=== PATIENT | female | born 1965 | race Caucasian/White ===

== ENCOUNTER 2023-01-13 23:06 | Inpatient (IN) | payer BC ==
[~2023-01-13] VITALS: Ht 165.1 cm; Wt 85.0 kg
[~2023-01-13 23:06] MED LIST: ASPI-611 PO; CLON-529 PO; FENO200C22 PO; FERR325T39 PO; LEVO50TA66 PO; MULT-620 PO; NITR0.4T SL; SPIR100T5 PO
[2023-01-13 23:28] LABS: BASOPHILS # (AUTO) 0.1 X10'3 (0-0.2); BASOPHILS % (AUTO) 0.7 % (0-1); EOSINOPHILS # (AUTO) 0.2 X10'3 (0-0.9); EOSINOPHILS % (AUTO) 2.3 % (0-6); HEMATOCRIT 43.1 % (35.0-45.0); HEMOGLOBIN 14.6 g/dl (12.0-16.0); LYMPHOCYTES # (AUTO) 3.6 X10'3 (1.1-4.8); LYMPHOCYTES % (AUTO) 35.6 % (21-51); MEAN CORPUSCULAR HEMOGLOBIN 31.3 PG (27.0-31.0); MEAN CORPUSCULAR HGB CONC 33.8 g/dL (33.0-36.5); MEAN CORPUSCULAR VOLUME 92.6 FL (78-98); MEAN PLATELET VOLUME 9.4 FL (7.4-10.4); MONOCYTES # (AUTO) 0.7 X10'3 (0-0.9); MONOCYTES % (AUTO) 6.7 % (2-12); NEUTROPHILS # (AUTO) 5.5 X10'3 (1.8-7.7); NEUTROPHILS % (AUTO) 54.7 % (42-75); PLATELET COUNT 293 X10'3 (140-440); RED BLOOD COUNT 4.66 X10'6 (4.20-5.60); RED CELL DISTRIBUTION WIDTH 12.5 % (11.5-14.5)
[2023-01-13 23:44] LABS: ALANINE AMINOTRANSFERASE 26 U/L (12-78); ALBUMIN 3.8 G/DL (3.4-5.0); ALBUMIN/GLOBULIN RATIO 1.3 (1.1-1.5); ALKALINE PHOSPHATASE 58 IU/L (46-116); ANION GAP 11 (8-16); ASPARTATE AMINO TRANSFERASE 12 U/L (10-37); BILIRUBIN,TOTAL 0.2 MG/DL (0.1-1.0); BLOOD UREA NITROGEN 36 MG/DL (7-18); BUN/CREATININE RATIO 26.9 (10.0-20.0); CALCIUM 9.6 MG/DL (8.5-10.1); CHLORIDE 98 MMOL/L (99-107); CREATININE 1.34 MG/DL (0.40-0.90); GLUCOSE 264 MG/DL (70-104); POTASSIUM 3.7 MMOL/L (3.5-5.1); SODIUM 137 MMOL/L (135-145); TOTAL PROTEIN 6.8 G/DL (6.4-8.2); eGFR 41 ML/MIN
[2023-01-13] MEDS ORDERED: aspirin 325mg tablet PO ONE (23:50)
[2023-01-13] MEDS ORDERED: normal saline 1000ml 1,000 ML IV ONE (23:50)
[2023-01-13 23:52] LABS: MAGNESIUM 1.9 MG/DL (1.5-2.4)
[2023-01-14] VITALS (9 sets, daily range): BP systolic 96–176; BP diastolic 52–107
[2023-01-14] MEDS ORDERED: bisacodyl 10mg suppository rectal RC PRN (01:00)
[2023-01-14] MEDS ORDERED: mag hydrox/Alum hydrox/simeth 30ml oral suspension PO PRN (01:00)
[2023-01-14] MEDS ORDERED: diphenhydrAMINE 50 mg/ml inj IV PRN (01:00)
[2023-01-14] MEDS ORDERED: HYDROcodone/acetaminophen 5mg/325mg tablet PO PRN ×2 (01:00→19:20)
[2023-01-14] MEDS ORDERED: magnesium hydroxide 30ml (MOM) UD suspension PO PRN (01:00)
[2023-01-14] MEDS ORDERED: ondansetron 4mg rapidly disintigrating tab PO PRN (01:00)
[2023-01-14] MEDS ORDERED: acetaminophen 325mg tablet PO PRN ×2 (01:00)
[2023-01-14] MEDS ORDERED: acetaminophen 650mg rectal suppository RC PRN (01:00)
[2023-01-14] MEDS ORDERED: diphenhydrAMINE 25mg capsule PO PRN (01:00)
[2023-01-14] MEDS ORDERED: dextrose 50%-water 50ml dispensing syringe IV PRN ×2 (01:05)
[2023-01-14] MEDS ORDERED: DEXTROSE 15 GM of carb/4 tabs (each vial/BOTTLE has 4 tablets) PO PRN ×2 (01:05)
[2023-01-14] MEDS ORDERED: aminophylline 250mg/10ml inj. IV PRN (01:05)
[2023-01-14] MEDS ORDERED: regadenoson 0.4mg/5ml syringe IV PRN (01:05)
[2023-01-14] MEDS ORDERED: metoprolol tartrate 1mg/ml inj IV PRN (01:05)
[2023-01-14] MEDS ORDERED: MESSAGE TO PHARMACY PO ONE (01:05)
[2023-01-14] MEDS ORDERED: glucagon, human recombinant 1mg kit SUBCUT PRN (01:05)
[2023-01-14 01:15] LABS: APTT 26 SECONDS (22-32)
[2023-01-14 01:17] LABS: PHOSPHORUS 4.9 MG/DL (2.3-4.5)
[2023-01-14 01:21] LABS: HEMOGLOBIN A1C 7.3 % (4.5-6.2)
[2023-01-14 01:28] LABS: D-DIMER 0.38 MG/L FEU (0-0.50)
[2023-01-14] MEDS: normal saline 1000ml 1,000 ML IV SCH ×2 (01:33→11:00)
[2023-01-14] MEDS ORDERED: LEVO75TA7 PO (04:11)
[2023-01-14] MEDS ORDERED: GLIP2.5T3 PO (04:21)
[2023-01-14] MEDS ORDERED: EZET10TA48 PO (04:21)
[2023-01-14] MEDS ORDERED: CALC3.8S NAS (04:21)
[2023-01-14] MEDS ORDERED: LIOT5TAB10 PO (04:21)
[2023-01-14] MEDS ORDERED: METF-438 PO (04:21)
[2023-01-14] MEDS ORDERED: DAPA10TA PO (04:21)
[2023-01-14] MEDS ORDERED: LOSA1TAB39 PO (04:21)
--- NOTE | 2023-01-14 06:01 | NUR ---
patient came to floor from ED. she is self. was able to do admission documentation. skin is dry and intact,. has stretch jaime and folds in abdomen from losing weight
--- NOTE | 2023-01-14 07:01 | NUR ---
Patient in room PCU 3016. I have received report from Marah HAMPTON and had the opportunity to ask questions and assume patient care. Patient HR dropped 38 per tele box, c/o chest sanjana Addendum: 01/14/23 at 702 by Mi Smalls LVN Pain, pain to L arm and nausea. VS obtained and stable. 12 lead EKG obtained, called to review. BERTA Crystal received new orders and carried out. Addendum: 01/14/23 at 702 by Mi Smalls LVN Will continue to monitor per order
--- NOTE | 2023-01-14 07:03 | NUR ---
patient complained of chest pain. pain radiating down left arm. feeling nausea. obtained ekg. dr wiggins came and read ekg. per md give norco 5mg for the pain not nitro because her heart rate is 55 nor morphine because heart rate is low. obtain vitals. patient has fluids nss 100.
--- NOTE | 2023-01-14 07:15 | NUR ---
PAGER ID: [phone] MESSAGE: [id number]- Pt c/o chest pain, radiating to L arm, symptomatic. EKG obtained. Please call HILLARY Stark [phone] Addendum: 01/14/23 at [address] Mi Sm[address] LVN Dr. Guthrie called, notified of c/o chest pain radiating to L arm, diaphresis, and nausea. Notified of order from Dr. Aponte for norco 325 that was carried out. Notified of elevated troponin level 68- no new orders at this time for troponin. Received telephone order to admin PRN nitro and zofran, if nitro is not effective then ordered to administer morphine. Charge nurse Lori to carry out. ordered to hold beta blockers for stress test, ok to admin other scheduled medication. Will cont to assess for any changes. Addendum: 01/14/23 at 0736 by Mi Smalls LVN PAGER ID: [phone] MESSAGE: [id number]- Corinna Velez: Pt still c/o chest pain, 2nd nitro give. Stress test corky Barry states cannot see patient due to chest pain, recommends another troponin and laborer shipyard. Pt sees Dr. Baugh regularly. Giorgio Stark [id number]
[2023-01-14] MEDS: ondansetron/PF 4mg/2ml inj IV PRN ×4 (07:17→23:36)
[2023-01-14] MEDS: nitroGLYCERIN 0.4mg SUBLingual tab SL PRN ×3 (07:18→13:34)
[2023-01-14] MEDS: pantoprazole 40mg Tablet.DR PO SCH (07:37)
--- NOTE | 2023-01-14 07:38 | NUR ---
PATIENT C/O 03/16 CP . dR JEAN NOTIFIED. PATIENT GIVEN NITRO X2 WITH SLIGHT IMPROVEMENT. PAIN RADIATES DOWN LEFT ARM AND WAS ALSO RADIATING TO JAW. SHE GOT A LITTLE RELIEF WITH NITRO. PAIN NOT RADIATING TO JAW ANYMORE. STILL C/O NAUSEA. GIVEN PROTONIX IN CASE OF GERD. PATIENT STATES SHE IS BURPING. PAIN STILL RADIATES DOWN LEFT ARM.
[2023-01-14] MEDS: aspirin 81mg, enteric-coated 1 TAB TABLET.DR PO SCH (07:51)
[2023-01-14] MEDS: docusate sod 100mg capsule PO SCH ×2 (07:51→20:00)
[2023-01-14] MEDS: morphine 2 MG/ML inj. syringe IV PRN ×2 (07:52→13:20)
[2023-01-14] MEDS ORDERED: heparin, porcine 5000 units/ml vial SQ SCH (08:00)
--- NOTE | 2023-01-14 08:00 | NUR ---
Problems reprioritized. Patient report given per charge nurse to RN, questions answered & plan of care reviewed with Kaylee HAMPTON. Kaylee to give IV morphine per MD order. VS obtained will enter into chart.
--- NOTE | 2023-01-14 09:00 | NUR ---
Patient in room PCU 3016. I have received report from Mahesh BENAVIDEZ and had the opportunity to ask questions and assume patient care. Pt is having symptomatic chest pain, nausea, diaphoretic with pressure and tightness. I assumed care due to pt needing a higher acuity nurse.
[2023-01-14 09:12] LABS: ALBUMIN 3.7 G/DL (3.4-5.0); ANION GAP 16 (8-16); BLOOD UREA NITROGEN 30 MG/DL (7-18); BUN/CREATININE RATIO 31.6 (10.0-20.0); CALCIUM 9.3 MG/DL (8.5-10.1); CHLORIDE 99 MMOL/L (99-107); CHOL/HDL RATIO 4.2 (0.00-4.99); CHOLESTEROL 175 MG/DL (0-200); CREATININE 0.95 MG/DL (0.40-0.90); GLUCOSE 193 MG/DL (70-104); HDL CHOLESTEROL 42 MG/DL (35-60); LDL CHOLESTEROL 100 MG/DL (50-100); POTASSIUM 3.6 MMOL/L (3.5-5.1); SODIUM 137 MMOL/L (135-145); TOTAL CARBON DIOXIDE 22.3 MMOL/L (24-32); TRIGLYCERIDES 175 MG/DL (20-135); eGFR 60 ML/MIN
[2023-01-14] MEDS ORDERED: heparin 25,000 UNIT/250ml bag 250 ML IV PRN (09:25)
[2023-01-14] MEDS ORDERED: heparin 10,000 units/1 ML INJ IV ONE (09:25)
[2023-01-14] MEDS ORDERED: heparin 10,000 units/1 ML INJ IV PRN (09:25)
[2023-01-14] MEDS ORDERED: nitroGLYCERIN-Tridil 50MG/D5W 250 ML IV SCH (13:45)
--- NOTE | 2023-01-14 14:22 | NUR ---
Per EMR pt with T2DM, well controlled with A1c 7.3%. Written DM education with RD contact information placed in patient's chart. Will remain available. Addendum: 01/14/23 at [address] Amended: Links added.
[2023-01-14] MEDS ORDERED: verapamil 2.5 mg/ml inj IV ONE (16:03)
[2023-01-14] MEDS ORDERED: nitroGLYCERIN-Tridil 50MG/D5W 250 ML IV ONE (16:03)
[2023-01-14] MEDS ORDERED: fentaNYL/PF 50MCG/1 ML 2ML syringe ONE (16:03)
[2023-01-14] MEDS ORDERED: iohexol 350MG/ML 100ml bottle IV ONE ×3 (16:03→17:46)
[2023-01-14] MEDS ORDERED: heparin 1,000unit/ml 10ml vial 10 ML ONE (16:03)
[2023-01-14] MEDS ORDERED: midazolam 1 mg/ML 2ml injection ONE ×2 (16:03→18:02)
[2023-01-14] MEDS ORDERED: LIDOcaine 1% (10mg/ml) 2ml vial ONE (16:04)
[2023-01-14] MEDS ORDERED: ticagrelor 90mg tablet ONE (17:17)
[2023-01-14] MEDS ORDERED: tirofiban 12.5mg in NS 250mL 250 ML IV ONE (17:35)
[2023-01-14] MEDS ORDERED: heparin 1,000 UNITS/NS 500ml 500 ML ONE (18:04)
--- NOTE | 2023-01-14 18:45 | NUR ---
Problems reprioritized. Patient report given, questions answered & plan of care reviewed with Marah HAMPTON, patient stable at transfer of care.
[2023-01-14] MEDS ORDERED: OXAZEpam 15mg capsule PO PRN (19:20)
[2023-01-14] MEDS ORDERED: normal saline 1000ml 1,000 ML IV SCH (19:20)
[2023-01-14] MEDS ORDERED: HYDROcodone/acetaminophen 10/325mg tab PO PRN (19:20)
[2023-01-14] MEDS ORDERED: temazepam 15mg capsule PO PRN (21:00)
[2023-01-14] MEDS: insulin glargine (Lantus) pen - multi-dose SQ SCH (21:00)
[2023-01-14] MEDS: ticagrelor 90mg tablet PO SCH (23:02)
[2023-01-14] MEDS ORDERED: ondansetron/PF 4mg/2ml inj IV PRN (23:25)
[2023-01-14] MEDS ORDERED: HYDROchlorothiazide 25mg tablet PO ONE (23:35)
[2023-01-14] MEDS ORDERED: aspirin 81mg, enteric-coated 1 TAB TABLET.DR PO ONE (23:35)
[2023-01-14] MEDS ORDERED: losartan 50mg tablet PO ONE (23:35)
[2023-01-14] MEDS ORDERED: cloNIDine 0.1 mg tablet PO ONE (23:35)
[2023-01-14 23:53] LABS: BASOPHILS % (AUTO) 0.1 % (0-1); EOSINOPHILS % (AUTO) 0 % (0-6); HEMATOCRIT 43.9 % (35.0-45.0); HEMOGLOBIN 14.8 g/dl (12.0-16.0); LYMPHOCYTES # (AUTO) 1.3 X10'3 (1.1-4.8); LYMPHOCYTES % (AUTO) 8.1 % (21-51); MEAN CORPUSCULAR HEMOGLOBIN 31.7 PG (27.0-31.0); MEAN CORPUSCULAR HGB CONC 33.8 g/dL (33.0-36.5); MEAN CORPUSCULAR VOLUME 93.9 FL (78-98); MEAN PLATELET VOLUME 9.5 FL (7.4-10.4); MONOCYTES # (AUTO) 0.9 X10'3 (0-0.9); MONOCYTES % (AUTO) 5.8 % (2-12); NEUTROPHILS # (AUTO) 13.4 X10'3 (1.8-7.7); PLATELET COUNT 287 X10'3 (140-440); RED BLOOD COUNT 4.67 X10'6 (4.20-5.60); RED CELL DISTRIBUTION WIDTH 12.8 % (11.5-14.5); WHITE BLOOD COUNT 15.6 X10'3 (4.5-11.0)
[2023-01-15] VITALS (17 sets, daily range): BP systolic 82–162; BP diastolic 49–91
[2023-01-15] MEDS ORDERED: hydrALAZINE 20mg/ml inj. IV PRN (00:20)
[2023-01-15] MEDS ORDERED: methylPREDNISolone sod succ 125mg/2ml vial IV ONE ×2 (01:00→08:25)
[2023-01-15] MEDS: diazepam inj 5 MG/ML inj. IV PRN ×3 (01:05→04:18)
[2023-01-15] MEDS ORDERED: niCARDipine-NS 40mg/200ml IVPB 200 ML IV SCH (01:10)
[2023-01-15] MEDS: normal saline 1000ml 1,000 ML IV SCH ×2 (01:20→07:00)
[2023-01-15 03:19] LABS: BASOPHILS % (AUTO) 0.1 % (0-1); EOSINOPHILS % (AUTO) 0 % (0-6); HEMOGLOBIN 14.9 g/dl (12.0-16.0); LYMPHOCYTES # (AUTO) 0.7 X10'3 (1.1-4.8); LYMPHOCYTES % (AUTO) 4.6 % (21-51); MEAN CORPUSCULAR HEMOGLOBIN 31.1 PG (27.0-31.0); MEAN CORPUSCULAR HGB CONC 33.1 g/dL (33.0-36.5); MEAN CORPUSCULAR VOLUME 94.2 FL (78-98); MEAN PLATELET VOLUME 9.8 FL (7.4-10.4); MONOCYTES # (AUTO) 0.5 X10'3 (0-0.9); MONOCYTES % (AUTO) 3.2 % (2-12); NEUTROPHILS # (AUTO) 14.7 X10'3 (1.8-7.7); NEUTROPHILS % (AUTO) 92.1 % (42-75); PLATELET COUNT 335 X10'3 (140-440); RED BLOOD COUNT 4.78 X10'6 (4.20-5.60); RED CELL DISTRIBUTION WIDTH 12.6 % (11.5-14.5)
[2023-01-15] MEDS: nitroGLYCERIN 0.4mg SUBLingual tab SL PRN ×2 (03:39→03:44)
[2023-01-15] MEDS ORDERED: potassium Cl 40MEQ/1/2NS 520ml 520 ML IV PRN (03:55)
[2023-01-15] MEDS ORDERED: magnesium 4gm in 100ml NS 100 ML IV PRN (03:55)
[2023-01-15] MEDS ORDERED: magnesium 2GM in 50ml NS 50 ML IV PRN (03:55)
[2023-01-15] MEDS ORDERED: potassium Cl 40MEQ/270ML bag 270 ML IV PRN (03:55)
[2023-01-15] MEDS ORDERED: potassium Cl 20 mEq SR tablet PO PRN ×2 (03:55)
[2023-01-15] MEDS ORDERED: magnesium Cl slow-release 64mg tablet PO PRN (03:55)
[2023-01-15] MEDS: tirofiban 12.5mg in NS 250mL IV SCH ×2 (03:59→12:51)
[2023-01-15] MEDS: potassium Cl 40MEQ/1/2NS 520ml 520 ML IV SCH ×2 (04:37→08:00)
--- NOTE | 2023-01-15 05:34 | NUR ---
patient came back from cathodic protection technician around 1800. got bedside report from cath nurse. faxed orders to pharm. patient stated she was feeling alot better then from this am.. patient was started on aggrastat to run for 18 hours. started drip at 1800. did a cbc per protcol at 2355 to check platetes. patient came up with TR band. per cath nurse I can start letting the air out at 1930pm.. I took 2 cc of air, then 2 cc. when I got up to six cc she started bleeding. put all the air back in. waited for 1 hour tried the same process again. patient started bleeding. around 1900 patient started feeling nausea, blood pressure where elevated. gave 4mg zofran no help, advised md patient has home medication blood pressure meds he ordered them. patient started throwing up. per md gave 8mg iv zofran. no help. bp still elevated. patient was diaphropheic shaking. obtained ekg. talked to joellen in ICU asked her to come up for 2nd opinion. md ordered nicardipine drip. patient is still on aggrastat. I inquired with pharm if drip could be making patient nausea. patient denied any sob, chest pain.. around 2 am patient stated she is having chest pain. we did labs. trop. gave three doses of nitro patient stated after third nitro her chest pain is 0. labs came back. k 2.2, calcium 6.1 corrected 7.06. trop 5,652. mag 1.0.
--- NOTE | 2023-01-15 05:44 | NUR ---
started k pedrito and mg pedrito. after being on nicardipine drip blood pressure was coming down. per md still give patient blood pressure po meds. patient is voiding well. had ED nurse come up and put another IV in since patient has alot of medications going in. md also ordered valium q 2 hours as needed. finally was able to take off the tr band around 215am. site is dry and intact.
--- NOTE | 2023-01-15 05:54 | NUR ---
checked patients blood sugar as well.
--- NOTE | 2023-01-15 06:54 | NUR ---
Patient in room PCU 3016. I have received report from Marah HAMPTON, and had the opportunity to ask questions and assume patient care.
[2023-01-15] MEDS ORDERED: diphenhydrAMINE 25mg capsule PO ONE (07:40)
[2023-01-15] MEDS ORDERED: diphenhydrAMINE 50 mg/ml inj IV ONE (07:45)
[2023-01-15] MEDS: K and/or MAG REPLACEMENT MC SCH (08:00)
[2023-01-15] MEDS: ezetimibe 10mg tablet PO SCH (08:05)
[2023-01-15] MEDS: ticagrelor 90mg tablet PO SCH ×2 (08:06→20:22)
[2023-01-15] MEDS: levoTHYROXINE 75mcg tablet PO SCH (08:06)
[2023-01-15] MEDS: aspirin 81mg, enteric-coated 1 TAB TABLET.DR PO SCH (08:06)
[2023-01-15] MEDS: losartan 50mg tablet PO SCH (08:06)
[2023-01-15] MEDS: HYDROchlorothiazide 25mg tablet PO SCH (08:06)
[2023-01-15] MEDS: pantoprazole 40mg Tablet.DR PO SCH (08:06)
[2023-01-15] MEDS: docusate sod 100mg capsule PO SCH ×2 (08:06→20:22)
[2023-01-15] MEDS: cloNIDine 0.1 mg tablet PO SCH ×3 (08:07→20:23)
[2023-01-15] MEDS: liothyronine sod 5mcg tablet PO SCH ×2 (08:13→20:22)
[2023-01-15] MEDS: fenofibrate 145mg tablet PO SCH (08:13)
[2023-01-15 09:11] LABS: ALANINE AMINOTRANSFERASE 27 U/L (12-78); ALBUMIN/GLOBULIN RATIO 1.1 (1.1-1.5); ALKALINE PHOSPHATASE 61 IU/L (46-116); ANION GAP 21 (8-16); ASPARTATE AMINO TRANSFERASE 49 U/L (10-37); BILIRUBIN,TOTAL 0.5 MG/DL (0.1-1.0); BLOOD UREA NITROGEN 24 MG/DL (7-18); CALCIUM 9.1 MG/DL (8.5-10.1); CHLORIDE 100 MMOL/L (99-107); CREATININE 1.33 MG/DL (0.40-0.90); GLUCOSE 298 MG/DL (70-104); MAGNESIUM 2.1 MG/DL (1.5-2.4); SODIUM 138 MMOL/L (135-145); TOTAL CARBON DIOXIDE 16.7 MMOL/L (24-32); TOTAL PROTEIN 7.6 G/DL (6.4-8.2); eGFR 41 ML/MIN
[2023-01-15 09:13] LABS: POTASSIUM 3.9 MMOL/L (3.5-5.1)
[2023-01-15] MEDS: insulin Lispro (HumaLOG) vial - multi-dose SQ SCH ×2 (15:37→19:45)
--- NOTE | 2023-01-15 18:40 | NUR ---
Problems reprioritized. Patient report given, questions answered & plan of care reviewed with Suni RN, patient stable at transfer of care.
--- NOTE | 2023-01-15 18:45 | NUR ---
Patient in room PCU 3016. I have received report from ANA HAMPTON and had the opportunity to ask questions and assume patient care.
[2023-01-15] MEDS: insulin glargine (Lantus) pen - multi-dose SQ SCH (22:04)
[2023-01-16 02:00] VITALS: BP 110/62
[2023-01-16] MEDS: tirofiban 12.5mg in NS 250mL IV SCH (05:12)
--- NOTE | 2023-01-16 06:19 | NUR ---
Problems reprioritized. Patient report given, questions answered & plan of care reviewed with ANDREW HAMPTON.
[2023-01-16 06:30] VITALS: BP 168/92
--- NOTE | 2023-01-16 06:38 | NUR ---
Patient in room PCU 3016. I have received report from Maggie Serrano RN and had the opportunity to ask questions and assume patient care.
[2023-01-16 07:21] LABS: BASOPHILS % (AUTO) 0.3 % (0-1); EOSINOPHILS % (AUTO) 0.3 % (0-6); HEMATOCRIT 43.1 % (35.0-45.0); HEMOGLOBIN 14.6 g/dl (12.0-16.0); LYMPHOCYTES # (AUTO) 2.2 X10'3 (1.1-4.8); LYMPHOCYTES % (AUTO) 15.4 % (21-51); MEAN CORPUSCULAR HEMOGLOBIN 31.5 PG (27.0-31.0); MEAN CORPUSCULAR VOLUME 92.9 FL (78-98); MEAN PLATELET VOLUME 9.4 FL (7.4-10.4); MONOCYTES % (AUTO) 7.2 % (2-12); NEUTROPHILS # (AUTO) 11.1 X10'3 (1.8-7.7); NEUTROPHILS % (AUTO) 76.8 % (42-75); PLATELET COUNT 277 X10'3 (140-440); RED BLOOD COUNT 4.64 X10'6 (4.20-5.60); RED CELL DISTRIBUTION WIDTH 12.7 % (11.5-14.5); WHITE BLOOD COUNT 14.5 X10'3 (4.5-11.0)
[2023-01-16] MEDS: docusate sod 100mg capsule PO SCH (07:21)
[2023-01-16] MEDS: ezetimibe 10mg tablet PO SCH (07:22)
[2023-01-16] MEDS: losartan 50mg tablet PO SCH (07:22)
[2023-01-16] MEDS: liothyronine sod 5mcg tablet PO SCH (07:22)
[2023-01-16] MEDS: levoTHYROXINE 75mcg tablet PO SCH (07:22)
[2023-01-16] MEDS: aspirin 81mg, enteric-coated 1 TAB TABLET.DR PO SCH (07:22)
[2023-01-16] MEDS: HYDROchlorothiazide 25mg tablet PO SCH (07:23)
[2023-01-16] MEDS: pantoprazole 40mg Tablet.DR PO SCH (07:23)
[2023-01-16] MEDS: cloNIDine 0.1 mg tablet PO SCH (07:23)
[2023-01-16] MEDS: ticagrelor 90mg tablet PO SCH (07:23)
[2023-01-16 07:26] LABS: ALANINE AMINOTRANSFERASE 25 U/L (12-78); ALBUMIN 3.9 G/DL (3.4-5.0); ALBUMIN/GLOBULIN RATIO 1.2 (1.1-1.5); ALKALINE PHOSPHATASE 56 IU/L (46-116); ANION GAP 7 (8-16); ASPARTATE AMINO TRANSFERASE 33 U/L (10-37); BILIRUBIN,TOTAL 0.5 MG/DL (0.1-1.0); BLOOD UREA NITROGEN 31 MG/DL (7-18); BUN/CREATININE RATIO 27.9 (10.0-20.0); CALCIUM 9.9 MG/DL (8.5-10.1); CHLORIDE 101 MMOL/L (99-107); CREATININE 1.11 MG/DL (0.40-0.90); GLUCOSE 148 MG/DL (70-104); MAGNESIUM 2.1 MG/DL (1.5-2.4); POTASSIUM 3.3 MMOL/L (3.5-5.1); SODIUM 139 MMOL/L (135-145); TOTAL CARBON DIOXIDE 31.1 MMOL/L (24-32); TOTAL PROTEIN 7.2 G/DL (6.4-8.2); eGFR 50 ML/MIN
[2023-01-16] MEDS: K and/or MAG REPLACEMENT MC SCH (08:00)
[2023-01-16] MEDS: fenofibrate 145mg tablet PO SCH (08:00)
[2023-01-16] MEDS: insulin Lispro (HumaLOG) vial - multi-dose SQ SCH (08:58)
[2023-01-16] MEDS ORDERED: TICA90TA PO (09:32)
[2023-01-16] MEDS ORDERED: ASPI-1071 PO (09:32)
[2023-01-16] MEDS ORDERED: LOP25T PO (09:32)
[2023-01-16] MEDS ORDERED: NITR0.4T51 SL (09:36)
[2023-01-16 10:30] VITALS: BP 106/64
[2023-01-16] MEDS ORDERED: potassium Cl 20 mEq SR tablet PO STA (11:40)
--- NOTE | 2023-01-16 12:08 | NUR ---
Pt stable for D/C per MD orders. PIV's x 3 removed, pt tolerated well. Tele removed and returned to telecommunication equipment repairer. All d/c ppwk was rev'd with patient and patient verbalized understanding. Jhonny showed by the prescription of Brilinta. All questions, comments, and concerns were answered at this time. All personal belongings were sent with patient. New RX electronically sent to [facility].
--- NOTE | 2023-01-16 12:11 | NUR ---
Pt refused 1200 accucheck as she is getting d/c'd.
--- NOTE | 2023-01-16 12:30 | NUR ---
Pt was wheeled out in w/c by nursing staff to private vehicle, driving.
[2023-01-17] MEDS ORDERED: SULF1TAB49 PO (20:52)
[2023-01-17] MEDS ORDERED: AMOX-117 PO (20:53)
== END 2023-01-16 12:16 | disposition home or self-care (01) | DRG 246 ==
LOC: ER 23:07 → ED HOLD 01-14 01:02 → PCU 3S 01-14 05:00
PROVIDERS: ADMIT Family Medicine; ATTEND Family Medicine
PROC: 4A023N7 Measurement of Cardiac Sampling and Pressure, Left Heart, Percutaneous Approach (ICD-10-PCS; principal; 2023-01-14)
PROC: 027034Z Dilation of Coronary Artery, One Artery with Drug-eluting Intraluminal Device, Percutaneous Approach (ICD-10-PCS; 2023-01-14)
PROC: B2111ZZ Fluoroscopy of Multiple Coronary Arteries using Low Osmolar Contrast (ICD-10-PCS; 2023-01-14)
DX: I25.110 Atherosclerotic heart disease of native coronary artery with unstable angina pectoris (principal); I21.A1 Myocardial infarction type 2; N17.0 Acute kidney failure with tubular necrosis; T88.6XXA Anaphylactic reaction due to adverse effect of correct drug or medicament properly administered, initial encounter; E03.9 Hypothyroidism, unspecified; E11.22 Type 2 diabetes mellitus with diabetic chronic kidney disease; E11.51 Type 2 diabetes mellitus with diabetic peripheral angiopathy without gangrene; E78.5 Hyperlipidemia, unspecified; I12.9 Hypertensive chronic kidney disease with stage 1 through stage 4 chronic kidney disease, or unspecified chronic kidney disease; T46.6X5A Adverse effect of antihyperlipidemic and antiarteriosclerotic drugs, initial encounter; I95.9 Hypotension, unspecified; N18.30 Chronic kidney disease, stage 3 unspecified; Z79.82 Long term (current) use of aspirin; Z79.84 Long term (current) use of oral hypoglycemic drugs; Z79.899 Other long term (current) drug therapy; Z90.710 Acquired absence of both cervix and uterus; Z88.8 Allergy status to other drugs, medicaments and biological substances; Z95.5 Presence of coronary angioplasty implant and graft; Z79.890 Hormone replacement therapy; Y92.89 Other specified places as the place of occurrence of the external cause
CPT/HCPCS: 93454; 99285; C9600; 36415; 71045; 80048; 80053; 80061; 82948; 83036; 83690; 83735; 83880; 84100; 84443; 84484; 85025; 85379; 85610; 85730; 87081; 93005; 99152; 99153; A6258; C1725; C1751; C1874; C1894; C9608; G0378; J0360; J1200; J1644; J1815; J2250; J2270; J2405; J2930; J3010; J3246; J3360; J3475; J3480; J3490; J7030; Q9967

== ENCOUNTER 2023-01-17 19:14 | Emergency (ER) | payer BC ==
[~2023-01-17] VITALS: Ht 165.1 cm; Wt 79.5 kg
[~2023-01-17 19:14] MED LIST changes: +ASPI-1071 PO; -ASPI-611 PO; +CALC3.8S NAS; +DAPA10TA PO; +EZET10TA48 PO; -FERR325T39 PO; +GLIP2.5T3 PO; -LEVO50TA66 PO; +LEVO75TA7 PO; +LIOT5TAB10 PO; +LOP25T PO; +LOSA1TAB39 PO; +METF-438 PO; -MULT-620 PO; -NITR0.4T SL; +NITR0.4T51 SL; +TICA90TA PO
[2023-01-17] MEDS ORDERED: piperacillin/tazo 3.375gm/50ml 50 ML IV ONE (19:50)
[2023-01-17 19:51] VITALS: BP 146/87
[2023-01-17 20:34] LABS: ALANINE AMINOTRANSFERASE 22 U/L (12-78); ALBUMIN 4.2 G/DL (3.4-5.0); ALBUMIN/GLOBULIN RATIO 1.2 (1.1-1.5); ALKALINE PHOSPHATASE 63 IU/L (46-116); ANION GAP 8 (8-16); ASPARTATE AMINO TRANSFERASE 12 U/L (10-37); BILIRUBIN,TOTAL 0.5 MG/DL (0.1-1.0); BLOOD UREA NITROGEN 35 MG/DL (7-18); BUN/CREATININE RATIO 32.7 (10.0-20.0); CALCIUM 9.6 MG/DL (8.5-10.1); CHLORIDE 97 MMOL/L (99-107); CREATININE 1.07 MG/DL (0.40-0.90); GLUCOSE 132 MG/DL (70-104); POTASSIUM 3.9 MMOL/L (3.5-5.1); SODIUM 133 MMOL/L (135-145); TOTAL CARBON DIOXIDE 27.9 MMOL/L (24-32); TOTAL PROTEIN 7.8 G/DL (6.4-8.2); eGFR 53 ML/MIN
[2023-01-17 20:44] LABS: BASOPHILS # (AUTO) 0.1 X10'3 (0-0.2); BASOPHILS % (AUTO) 0.5 % (0-1); EOSINOPHILS # (AUTO) 0.2 X10'3 (0-0.9); EOSINOPHILS % (AUTO) 1.2 % (0-6); HEMATOCRIT 45.2 % (35.0-45.0); HEMOGLOBIN 15.2 g/dl (12.0-16.0); LYMPHOCYTES # (AUTO) 2.5 X10'3 (1.1-4.8); LYMPHOCYTES % (AUTO) 20.5 % (21-51); MEAN CORPUSCULAR HEMOGLOBIN 31.4 PG (27.0-31.0); MEAN CORPUSCULAR HGB CONC 33.7 g/dL (33.0-36.5); MEAN CORPUSCULAR VOLUME 93.4 FL (78-98); MEAN PLATELET VOLUME 9.6 FL (7.4-10.4); MONOCYTES # (AUTO) 0.8 X10'3 (0-0.9); MONOCYTES % (AUTO) 6.5 % (2-12); NEUTROPHILS # (AUTO) 8.6 X10'3 (1.8-7.7); NEUTROPHILS % (AUTO) 71.3 % (42-75); PLATELET COUNT 287 X10'3 (140-440); RED BLOOD COUNT 4.84 X10'6 (4.20-5.60); RED CELL DISTRIBUTION WIDTH 12.4 % (11.5-14.5); WHITE BLOOD COUNT 12.1 X10'3 (4.5-11.0)
[2023-01-17] MEDS ORDERED: SULF1TAB49 PO (20:52)
[2023-01-17] MEDS ORDERED: AMOX-117 PO (20:53)
[2023-01-17] MEDS ORDERED: sulfamethoxazole/trimethoprim DS (800/160mg) tablet PO ONE (20:55)
[2023-01-17] MEDS ORDERED: amox tr/potassium clavulanate 875/125mg TAB PO ONE (20:55)
== END 2023-01-17 21:12 | disposition home or self-care (01) ==
LOC: ER 19:15
DX: L03.113 Cellulitis of right upper limb (principal); E11.9 Type 2 diabetes mellitus without complications; I12.0 Hypertensive chronic kidney disease with stage 5 chronic kidney disease or end stage renal disease; N18.9 Chronic kidney disease, unspecified; Z88.8 Allergy status to other drugs, medicaments and biological substances
CPT/HCPCS: 36415; 80053; 83605; 83735; 84145; 85025; 87040; 96365; 99284; J2543